=== PATIENT | female | born 1990 | race Hispanic/Latino ===

== ENCOUNTER 2021-05-04 23:54 | Inpatient (IN) | payer BC ==
[2021-05-05] MEDS ORDERED: LIDOCAINE (2%) 20 MG/1 ML VIAL 20 ML MDV INFILTRATI ONE (01:07)
[2021-05-05] MEDS ORDERED: OXYTOCIN 10 UNIT/1 ML INJ IM PRN (01:07)
[2021-05-05] MEDS ORDERED: ePHEDrine SULFATE 50 MG/1 ML INJ IV PRN ×2 (01:07→02:46)
[2021-05-05] MEDS ORDERED: NALOXONE 0.4 MG/1 ML INJ IV PRN (01:07)
[2021-05-05] MEDS ORDERED: CARBOPROST TROMETHAMINE 250 MCG/1 ML INJ IM PRN (01:07)
[2021-05-05] MEDS ORDERED: BUTORPHANOL 2 MG/1 ML INJ IV PRN (01:07)
[2021-05-05] MEDS ORDERED: MINERAL OIL 30 ML ORAL LIQD PO PRN (01:07)
[2021-05-05] MEDS ORDERED: miSOPROStol 200 MCG TAB PR PRN (01:07)
[2021-05-05] MEDS ORDERED: fentaNYL 100 MCG/2 ML INJ IV PRN (01:07)
[2021-05-05] MEDS ORDERED: METHYLERGONOVINE MALEATE 0.2 MG/ML VIAL IM PRN (01:07)
[2021-05-05] MEDS ORDERED: PROMETHAZINE 25 MG TAB PO PRN ×2 (01:07→11:49)
[2021-05-05] MEDS ORDERED: LOPERAMIDE 2 MG CAP PO PRN (01:07)
[2021-05-05] MEDS ORDERED: TERBUTALINE 1 MG/1 ML INJ SUB-Q PRN (01:07)
[2021-05-05] MEDS ORDERED: ONDANSETRON 4 MG/2 ML INJ IV PRN ×3 (01:07→11:49)
--- NOTE | 2021-05-05 01:25 | History and Physical Report ---
History of Present Illness Date of examination: 05/05/21 Date of admission: 05/05/2021 Chief complaint: My water broke and its green colored. History of present illness: Pt presents to triage with c/o SROM @ 1700 on 05/04/21 for green fluid. Also states contractions started after SROM. EDC Confirmation: 05/10/2021 Gestational Age: 39.2 weeks on admission Past History : 1 Risk Factors: Smoked Tobacco Use: Former smoker Cigarettes: Yes Year started: 2004 Years smoked: 2013 HIV high-risk behavior: no Alcohol use: yes Type: freq Exercise: no Seatbelt use: 100 % Past Medical History: Reviewed history from 12/12/2009 and no changes required: Negative Past Medical History Past Surgical History: Reviewed history from 12/12/2009 and no changes required: Negative Past Surgical History Past Medical History Abnormal PAP: negative TRACE Exposure: negative Infertility: negative Uterine Anomaly: negative Uterine Surgery (not C/S): negative Other Gynecologic Problems: negative Social Hx: Patient is 02/2020 Smoking History: Patient has never smoked. occ etoh/ no drugs Infection History HIV Risk Eval: no Partner hx. of genital herpes: no Rash, Viral, or Febrile illness since last LMP? no Genetic History Congenital Heart Defect: Mom: no Dad: no Jennifer Disease: Mom: no Dad: no Thalassemia Mom: no Dad: no Neural Tube Defect Mom: no Dad: no Down's Syndrome Mom: no Dad: no Mark-Sachs Mom: no Dad: no Sickle Cell Disease/Trait Mom: no Dad: no Hemophilia Mom: no Dad: no Muscular Dystrophy Mom: no Dad: no Cystic Fibrosis Mom: no Dad: no [place] Chorea Mom: no Dad: no Mental Retardation Mom: no Dad: no Fragile X Mom: no Dad: no Other Genetic/Chromosomal Disorder Mom: no Dad: no Child w/other defect Mom: no Dad: no Current Allergies (reviewed today): No known allergies Past History Past Medical History: no pertinent history Past Surgical History: no surgical history Family/Genetic History: none Social history: no significant social history, - Obstetrical History Expected Date of Delivery: 05/10/21 Actual Gestation: 39 Week(s) 2 Day(s) : 1 Para: 0 Hx # Term Pregnancies: 0 Number of Pregnancies: 0 Spontaneous Abortions: 0 Induced : 0 Number of Living Children: 0 Medications and Allergies Allergies Allergy/AdvReac Type Severity Reaction Status Date / Time amoxicillin [From Augmentin] AdvReac Vomiting Verified 05/05/21 01:00 clavulanic acid AdvReac Vomiting Verified 05/05/21 01:00 [From Augmentin] Review of Systems All systems: negative - Vital Signs Vital signs: Vital Signs Pulse Pulse Ox 95 H 98 05/05/21 00:46 05/05/21 00:46 Temp Pulse Resp BP Pulse Ox 98.3 F 100 H 18 139/86 98 05/05/21 00:48 05/05/21 01:16 05/05/21 00:48 05/05/21 00:48 05/05/21 01:16 - Physical Exam Breasts: Positive: deferred Cardiovascular: Regular rate Lungs: Positive: Normal air movement Abdomen: Positive: normal appearance, soft Genitourinary (Female): Positive: normal external genitalia, normal perenium Vulva: both: normal Uterus: Positive: normal size (For 39.2 wk gestation. ) Extremities: Positive: normal - Obstetrical FHR: category 1 Cervical Dilatation: 3 (Green fluid noted on exam glove.) Cervical Effacement Percentage: 70 station: -2 Uterine Contraction Pattern: Regular Uterine Tone Measurement Phase: Resting Uterine Contraction Intensity: Moderate Results Result Diagrams: 05/05/21 02:15 All other labs normal. GBS UNKNOWN HBsAg Screen Negative Negative *1 RPR Non Reactive Non Reactive *2 Rubella Antibodies, IgG 2.57 index Immune >0.99 *3 Non-immune <0.90 Equivocal 0.90 - 0.99 Immune >0.99 ABO Grouping O *4 Rh Factor Positive *5 Please note: Prior records for this patient's ABO / Rh type are not available for additional verification. Antibody Screen Negative Negative *6 ! Tests: (2) HB Solu + Rflx Frac (128422) Hemoglobin (Hgb) Solubility Negative Negative *31 Tests: (3) HIV Ag/Ab with Reflex ([id number]) HIV Screen 4th Generation wRfx Non Reactive Non Reactive *32 Tests: (4) HCV Ab w/Rflx to Verification ([id number]) ! HCV Ab <0.1 s/co ratio 0.0-0.9 *33 Tests: (5) Comment: ([id number]) ! Comment: SPRCS *34 Non reactive HCV antibody screen is consistent with no HCV infection, unless recent infection is suspected or other evidence exists to indicate HCV infection. Assessment and Plan A: 30 y.o. @ 39.2 wks, SROM mec stained fluid. Cervical exam /. - Patient Problems (1) Meconium in amniotic fluid affecting management of mother in third trimester Onset Date: ~05/05/21 Current Visit: Yes Status: Acute Plan to address problem: Continuos EFM. [facility] team for delivery. (2) with 39 completed weeks gestation Onset Date: ~05/05/21 Current Visit: Yes Status: Acute Plan to address problem: Admit to labor and delivery. Draw admission labs. Initiate IV. GBS Unknown: Clindamycin (pt allergic to amoxicillin) for prophylaxis. Monitor mother's temperature every 2 hrs. Anticipate .
[2021-05-05] MEDS ORDERED: ACETAMINOPHEN 500 MG TAB PO PRN ×2 (01:34→12:01)
[2021-05-05] MEDS ORDERED: OXYTOCIN DRIP 30 UNITS/500 ML BAG IV SCH ×2 (02:00)
[2021-05-05] MEDS: LACTATED RINGERS 1,000 ML IV SCH ×2 (02:00→03:17)
[2021-05-05 02:44] LABS: Hematocrit 32.3 % (30.3-42.9); Mean Corpuscular HGB Conc 34 % (30-34); Mean Corpuscular Volume 83 fl (79-97); Platelet Count 213 K/mm3 (140-440); Red Blood Count 3.88 M/mm3 (3.65-5.03); Red Cell Distribution Width 15.5 % (13.2-15.2)
[2021-05-05] MEDS ORDERED: diphenhydrAMINE 50 MG/ML VIAL IV PRN (02:46)
[2021-05-05] MEDS ORDERED: LACTATED RINGERS 250 ML IV SOLN IV ONE (02:46)
[2021-05-05] MEDS ORDERED: NalbUPHINE 10 MG/1 ML INJ IV PRN (02:46)
[2021-05-05] MEDS ORDERED: NALOXONE 2 MG/2 ML INJ IV PRN (02:46)
[2021-05-05] MEDS ORDERED: fentaNYL-BUPIV 2 MCG/ML-0.125% 200 MCG/100 ML BAG EPIDURAL SCH (03:00)
--- NOTE | 2021-05-05 03:12 | Anesthesia Consultation ---
Anesthesia Consult and Med Hx Date of service: 05/05/21 - Airway Anesthetic Teeth Evaluation: Good ROM Head & Neck: Adequate Mental/Hyoid Distance: Adequate Mallampati Class: Class II Intubation Access Assessment: Probably Good - Pulmonary Exam CTA: Yes - Cardiac Exam Cardiac Exam: RRR - Pre-Operative Health Status ASA Pre-Surgery Classification: ASA2 Proposed Anesthetic Plan: Epidural - Pulmonary Hx Smoking: No Hx Sleep Apnea: No - Cardiovascular System Hx Hypertension: No Hx Heart Attack/AMI: No Hx Angina: No - Gastrointestinal Hx Gastroesophageal Reflux Disease: No - Endocrine Hx Renal Disease: No Hx Liver Disease: No Hx Insulin Dependent Diabetes: No Hx Non-Insulin Dependent Diabetes: No - Other Systems Hx Alcohol Use: (not since )
--- NOTE | 2021-05-05 03:12 | Progress Note ---
Labor Epidural - Labor Epidural Start Time: 02:55 Stop Time: 03:08 Performed by:: AYLA STRINGER Procedure: Patient is requesting epidural for labor and pain. H&P, labs were reviewed. Patient IDed, H&P reviewed, all questions and concerns were answered, and consent was signed. Timeout was performed at bedside. Patient in sitting position. Sterile prep and drape was performed. 3ml of 1% lidocaine skin wheal at L[3]- L [4]. 18-gauge Tuohy epidural needle was advanced to loss of resistance with air technique 5cm. Negative CSF negative blood. Epidural catheter advanced to [10] centimeters. [negative] Aspiration [negative] test dose. Sterile dressing applied. Patient tolerated procedure.
--- NOTE | 2021-05-05 05:41 | Progress Note ---
Assessment and Plan A: Pt resting comfortably S/P epidural. No new complaints, SVE performed . Pt placed right lateral w/ peanut ball, Cat 1 tracing P: Begin Pit infusion 2mu/min, titrate per protocol. Will reassess PRN Subjective - Subjective Date of service: 05/05/21 (Pt comfortable with epidural) Principal diagnosis: IUP @ 39.2 wks, SROM light mec Patient reports: loss of fluid (Light green meconium noted. ), movement normal, no new complaints, no vaginal bleeding, no contractions Objective - Vital Signs Vital Signs: Vital Signs - 12hr 05/05/21 05/05/21 05/05/21 00:46 00:47 00:48 Temperature 98.3 F Pulse Rate 95 H 83 98 H Respiratory 18 Rate Blood Pressure 139/86 Blood Pressure 139/86 [Right] O2 Sat by Pulse 98 98 Oximetry O2 Sat by Pulse Oximetry [ Bilateral] 05/05/21 05/05/21 05/05/21 00:51 00:56 01:01 Temperature Pulse Rate 100 H 86 87 Respiratory Rate Blood Pressure Blood Pressure [Right] O2 Sat by Pulse 97 97 98 Oximetry O2 Sat by Pulse Oximetry [ Bilateral] 05/05/21 05/05/21 05/05/21 01:06 01:11 01:16 Temperature Pulse Rate 96 H 88 100 H Respiratory Rate Blood Pressure Blood Pressure [Right] O2 Sat by Pulse 97 97 98 Oximetry O2 Sat by Pulse Oximetry [ Bilateral] 05/05/21 05/05/21 05/05/21 01:37 01:54 01:59 Temperature Pulse Rate 84 89 Respiratory Rate Blood Pressure Blood Pressure [Right] O2 Sat by Pulse 97 97 Oximetry O2 Sat by Pulse 98 Oximetry [ Bilateral] 05/05/21 05/05/21 05/05/21 02:04 02:09 02:14 Temperature Pulse Rate 85 84 85 Respiratory Rate Blood Pressure Blood Pressure [Right] O2 Sat by Pulse 97 97 98 Oximetry O2 Sat by Pulse Oximetry [ Bilateral] 05/05/21 05/05/21 05/05/21 02:19 02:20 02:24 Temperature Pulse Rate 84 83 76 Respiratory Rate Blood Pressure 123/76 Blood Pressure [Right] O2 Sat by Pulse 98 98 Oximetry O2 Sat by Pulse Oximetry [ Bilateral] 05/05/21 05/05/21 05/05/21 02:29 02:34 02:39 Temperature Pulse Rate 76 93 H 104 H Respiratory Rate Blood Pressure Blood Pressure [Right] O2 Sat by Pulse 98 97 99 Oximetry O2 Sat by Pulse Oximetry [ Bilateral] 05/05/21 05/05/21 05/05/21 02:44 02:50 02:55 Temperature Pulse Rate 81 91 H 108 H Respiratory Rate Blood Pressure Blood Pressure [Right] O2 Sat by Pulse 98 98 98 Oximetry O2 Sat by Pulse Oximetry [ Bilateral] 05/05/21 05/05/21 05/05/21 03:00 03:05 03:08 Temperature Pulse Rate 94 H 99 H 104 H Respiratory Rate Blood Pressure 122/67 Blood Pressure [Right] O2 Sat by Pulse 98 96 Oximetry O2 Sat by Pulse Oximetry [ Bilateral] 05/05/21 05/05/21 05/05/21 03:10 03:13 03:15 Temperature Pulse Rate 87 87 88 Respiratory Rate Blood Pressure 105/58 Blood Pressure [Right] O2 Sat by Pulse 96 97 Oximetry O2 Sat by Pulse Oximetry [ Bilateral] 05/05/21 05/05/21 05/05/21 03:18 03:20 03:24 Temperature Pulse Rate 90 90 88 Respiratory Rate Blood Pressure 99/59 95/53 90/51 Blood Pressure [Right] O2 Sat by Pulse 97 Oximetry O2 Sat by Pulse Oximetry [ Bilateral] 05/05/21 05/05/21 05/05/21 03:25 03:30 03:35 Temperature Pulse Rate 83 95 H 84 Respiratory Rate Blood Pressure 96/57 Blood Pressure [Right] O2 Sat by Pulse 97 96 98 Oximetry O2 Sat by Pulse Oximetry [ Bilateral] 05/05/21 05/05/21 05/05/21 03:36 03:39 03:40 Temperature Pulse Rate 91 H 104 H 87 Respiratory Rate Blood Pressure 110/61 101/57 Blood Pressure [Right] O2 Sat by Pulse 97 Oximetry O2 Sat by Pulse Oximetry [ Bilateral] 05/05/21 05/05/21 05/05/21 03:45 03:50 03:55 Temperature Pulse Rate 98 H 90 102 H Respiratory Rate Blood Pressure 102/61 Blood Pressure [Right] O2 Sat by Pulse 96 96 97 Oximetry O2 Sat by Pulse Oximetry [ Bilateral] 05/05/21 05/05/21 05/05/21 04:00 04:05 04:07 Temperature Pulse Rate 103 H 94 H 85 Respiratory Rate Blood Pressure 102/56 Blood Pressure [Right] O2 Sat by Pulse 97 96 Oximetry O2 Sat by Pulse Oximetry [ Bilateral] 05/05/21 05/05/21 05/05/21 04:10 04:15 04:20 Temperature Pulse Rate 94 H 105 H 95 H Respiratory Rate Blood Pressure Blood Pressure [Right] O2 Sat by Pulse 97 97 97 Oximetry O2 Sat by Pulse Oximetry [ Bilateral] 05/05/21 05/05/21 05/05/21 04:21 04:25 04:30 Temperature Pulse Rate 85 92 H 99 H Respiratory Rate Blood Pressure 101/56 Blood Pressure [Right] O2 Sat by Pulse 97 96 Oximetry O2 Sat by Pulse Oximetry [ Bilateral] 05/05/21 05/05/21 05/05/21 04:35 04:37 04:40 Temperature Pulse Rate 96 H 86 93 H Respiratory Rate Blood Pressure 96/55 Blood Pressure [Right] O2 Sat by Pulse 96 95 Oximetry O2 Sat by Pulse Oximetry [ Bilateral] 05/05/21 05/05/21 05/05/21 04:45 04:49 04:50 Temperature Pulse Rate 94 H 86 98 H Respiratory Rate Blood Pressure Blood Pressure [Right] O2 Sat by Pulse 95 94 96 Oximetry O2 Sat by Pulse Oximetry [ Bilateral] 05/05/21 05/05/21 05/05/21 04:51 04:55 04:59 Temperature Pulse Rate 102 H 98 H 85 Respiratory Rate Blood Pressure 98/53 Blood Pressure [Right] O2 Sat by Pulse 95 94 Oximetry O2 Sat by Pulse Oximetry [ Bilateral] 05/05/21 05/05/21 05/05/21 05:00 05:04 05:05 Temperature Pulse Rate 88 85 85 Respiratory Rate Blood Pressure Blood Pressure [Right] O2 Sat by Pulse 95 94 94 Oximetry O2 Sat by Pulse Oximetry [ Bilateral] 05/05/21 05/05/21 05/05/21 05:06 05:10 05:15 Temperature Pulse Rate 94 H 89 86 Respiratory Rate Blood Pressure 96/55 Blood Pressure [Right] O2 Sat by Pulse 95 95 Oximetry O2 Sat by Pulse Oximetry [ Bilateral] 05/05/21 05/05/21 05/05/21 05:19 05:20 05:22 Temperature Pulse Rate 89 102 H 86 Respiratory Rate Blood Pressure 124/71 Blood Pressure [Right] O2 Sat by Pulse 94 97 Oximetry O2 Sat by Pulse Oximetry [ Bilateral] 05/05/21 05/05/21 05/05/21 05:25 05:30 05:35 Temperature Pulse Rate 104 H 91 H 85 Respiratory Rate Blood Pressure Blood Pressure [Right] O2 Sat by Pulse 97 96 97 Oximetry O2 Sat by Pulse Oximetry [ Bilateral] 05/05/21 05:37 Temperature Pulse Rate 84 Respiratory Rate Blood Pressure 116/69 Blood Pressure [Right] O2 Sat by Pulse Oximetry O2 Sat by Pulse Oximetry [ Bilateral] - Exam Breasts: deferred Cardiovascular: Regular rate Lungs: Normal air movement Abdomen: Present: normal appearance, soft Vulva: both: normal Uterus: Present: normal FHR: category 1 Uterine Contraction Monitor Mode: External Cervical Dilatation: 4 Cervical Effacement Percentage: 90 station: -1 Uterine Contraction Pattern: Irregular Uterine Tone Measurement Phase: Resting Uterine Contraction Intensity: Moderate - Labs Labs: Abnormal Labs 05/05/21 02:15 RDW 15.5 H Laboratory Results - last 24 hr 05/05/21 05/05/21 05/05/21 02:15 02:15 02:15 WBC 10.8 RBC 3.88 Hgb 11.0 Hct 32.3 MCV 83 MCH 28 MCHC 34 RDW 15.5 H Plt Count 213 Syphilis IgG Antibody Nonreactive Blood Type O POSITIVE Antibody Screen Negative
--- NOTE | 2021-05-05 09:26 | Progress Note ---
Assessment and Plan A: 30 y.o. @ 39.2 wks. SROM light mec. Feeling pressure. Cervical exam 100/0. P: Continue with labor and delivery management. Anticipate . - Patient Problems (1) Meconium in amniotic fluid affecting management of mother in third trimester Onset Date: ~05/05/21 Current Visit: Yes Status: Acute (2) with 39 completed weeks gestation Onset Date: ~05/05/21 Current Visit: Yes Status: Acute Subjective - Subjective Date of service: 05/05/21 (Pt was feeling pressure) Principal diagnosis: IUP @ 39.2 wks, SROM light mec Patient reports: loss of fluid (Light green meconium noted. ), movement n ormal, no new complaints, no vaginal bleeding, no contractions Objective - Vital Signs Vital Signs: Vital Signs - 12hr 05/05/21 05/05/21 05/05/21 00:46 00:47 00:48 Temperature 98.3 F Pulse Rate 95 H 83 98 H Respiratory 18 Rate Blood Pressure 139/86 Blood Pressure 139/86 [Right] O2 Sat by Pulse 98 98 Oximetry O2 Sat by Pulse Oximetry [ Bilateral] 05/05/21 05/05/21 05/05/21 00:51 00:56 01:01 Temperature Pulse Rate 100 H 86 87 Respiratory Rate Blood Pressure Blood Pressure [Right] O2 Sat by Pulse 97 97 98 Oximetry O2 Sat by Pulse Oximetry [ Bilateral] 05/05/21 05/05/21 05/05/21 01:06 01:11 01:16 Temperature Pulse Rate 96 H 88 100 H Respiratory Rate Blood Pressure Blood Pressure [Right] O2 Sat by Pulse 97 97 98 Oximetry O2 Sat by Pulse Oximetry [ Bilateral] 05/05/21 05/05/21 05/05/21 01:37 01:54 01:59 Temperature Pulse Rate 84 89 Respiratory Rate Blood Pressure Blood Pressure [Right] O2 Sat by Pulse 97 97 Oximetry O2 Sat by Pulse 98 Oximetry [ Bilateral] 05/05/21 05/05/21 05/05/21 02:04 02:09 02:14 Temperature Pulse Rate 85 84 85 Respiratory Rate Blood Pressure Blood Pressure [Right] O2 Sat by Pulse 97 97 98 Oximetry O2 Sat by Pulse Oximetry [ Bilateral] 05/05/21 05/05/21 05/05/21 02:19 02:20 02:24 Temperature Pulse Rate 84 83 76 Respiratory Rate Blood Pressure 123/76 Blood Pressure [Right] O2 Sat by Pulse 98 98 Oximetry O2 Sat by Pulse Oximetry [ Bilateral] 05/05/21 05/05/21 05/05/21 02:29 02:34 02:39 Temperature Pulse Rate 76 93 H 104 H Respiratory Rate Blood Pressure Blood Pressure [Right] O2 Sat by Pulse 98 97 99 Oximetry O2 Sat by Pulse Oximetry [ Bilateral] 05/05/21 05/05/21 05/05/21 02:44 02:50 02:55 Temperature Pulse Rate 81 91 H 108 H Respiratory Rate Blood Pressure Blood Pressure [Right] O2 Sat by Pulse 98 98 98 Oximetry O2 Sat by Pulse Oximetry [ Bilateral] 05/05/21 05/05/21 05/05/21 03:00 03:05 03:08 Temperature Pulse Rate 94 H 99 H 104 H Respiratory Rate Blood Pressure 122/67 Blood Pressure [Right] O2 Sat by Pulse 98 96 Oximetry O2 Sat by Pulse Oximetry [ Bilateral] 05/05/21 05/05/21 05/05/21 03:10 03:13 03:15 Temperature Pulse Rate 87 87 88 Respiratory Rate Blood Pressure 105/58 Blood Pressure [Right] O2 Sat by Pulse 96 97 Oximetry O2 Sat by Pulse Oximetry [ Bilateral] 05/05/21 05/05/21 05/05/21 03:18 03:20 03:24 Temperature Pulse Rate 90 90 88 Respiratory Rate Blood Pressure 99/59 95/53 90/51 Blood Pressure [Right] O2 Sat by Pulse 97 Oximetry O2 Sat by Pulse Oximetry [ Bilateral] 05/05/21 05/05/21 05/05/21 03:25 03:30 03:35 Temperature Pulse Rate 83 95 H 84 Respiratory Rate Blood Pressure 96/57 Blood Pressure [Right] O2 Sat by Pulse 97 96 98 Oximetry O2 Sat by Pulse Oximetry [ Bilateral] 05/05/21 05/05/21 05/05/21 03:36 03:39 03:40 Temperature Pulse Rate 91 H 104 H 87 Respiratory Rate Blood Pressure 110/61 101/57 Blood Pressure [Right] O2 Sat by Pulse 97 Oximetry O2 Sat by Pulse Oximetry [ Bilateral] 05/05/21 05/05/21 05/05/21 03:45 03:50 03:55 Temperature Pulse Rate 98 H 90 102 H Respiratory Rate Blood Pressure 102/61 Blood Pressure [Right] O2 Sat by Pulse 96 96 97 Oximetry O2 Sat by Pulse Oximetry [ Bilateral] 05/05/21 05/05/21 05/05/21 04:00 04:05 04:07 Temperature Pulse Rate 103 H 94 H 85 Respiratory Rate Blood Pressure 102/56 Blood Pressure [Right] O2 Sat by Pulse 97 96 Oximetry O2 Sat by Pulse Oximetry [ Bilateral] 05/05/21 05/05/21 05/05/21 04:10 04:15 04:20 Temperature Pulse Rate 94 H 105 H 95 H Respiratory Rate Blood Pressure Blood Pressure [Right] O2 Sat by Pulse 97 97 97 Oximetry O2 Sat by Pulse Oximetry [ Bilateral] 05/05/21 05/05/21 05/05/21 04:21 04:25 04:30 Temperature Pulse Rate 85 92 H 99 H Respiratory Rate Blood Pressure 101/56 Blood Pressure [Right] O2 Sat by Pulse 97 96 Oximetry O2 Sat by Pulse Oximetry [ Bilateral] 05/05/21 05/05/21 05/05/21 04:35 04:37 04:40 Temperature Pulse Rate 96 H 86 93 H Respiratory Rate Blood Pressure 96/55 Blood Pressure [Right] O2 Sat by Pulse 96 95 Oximetry O2 Sat by Pulse Oximetry [ Bilateral] 05/05/21 05/05/21 05/05/21 04:45 04:49 04:50 Temperature Pulse Rate 94 H 86 98 H Respiratory Rate Blood Pressure Blood Pressure [Right] O2 Sat by Pulse 95 94 96 Oximetry O2 Sat by Pulse Oximetry [ Bilateral] 05/05/21 05/05/21 05/05/21 04:51 04:55 04:59 Temperature Pulse Rate 102 H 98 H 85 Respiratory Rate Blood Pressure 98/53 Blood Pressure [Right] O2 Sat by Pulse 95 94 Oximetry O2 Sat by Pulse Oximetry [ Bilateral] 05/05/21 05/05/21 05/05/21 05:00 05:04 05:05 Temperature Pulse Rate 88 85 85 Respiratory Rate Blood Pressure Blood Pressure [Right] O2 Sat by Pulse 95 94 94 Oximetry O2 Sat by Pulse Oximetry [ Bilateral] 05/05/21 05/05/21 05/05/21 05:06 05:10 05:15 Temperature Pulse Rate 94 H 89 86 Respiratory Rate Blood Pressure 96/55 Blood Pressure [Right] O2 Sat by Pulse 95 95 Oximetry O2 Sat by Pulse Oximetry [ Bilateral] 05/05/21 05/05/21 05/05/21 05:19 05:20 05:22 Temperature Pulse Rate 89 102 H 86 Respiratory Rate Blood Pressure 124/71 Blood Pressure [Right] O2 Sat by Pulse 94 97 Oximetry O2 Sat by Pulse Oximetry [ Bilateral] 05/05/21 05/05/21 05/05/21 05:25 05:30 05:35 Temperature Pulse Rate 104 H 91 H 85 Respiratory Rate Blood Pressure Blood Pressure [Right] O2 Sat by Pulse 97 96 97 Oximetry O2 Sat by Pulse Oximetry [ Bilateral] 05/05/21 05/05/21 05/05/21 05:37 05:40 05:45 Temperature Pulse Rate 84 92 H 94 H Respiratory Rate Blood Pressure 116/69 Blood Pressure [Right] O2 Sat by Pulse 96 97 Oximetry O2 Sat by Pulse Oximetry [ Bilateral] 05/05/21 05/05/21 05/05/21 05:50 05:51 05:55 Temperature Pulse Rate 87 82 89 Respiratory Rate Blood Pressure 122/77 Blood Pressure [Right] O2 Sat by Pulse 96 95 Oximetry O2 Sat by Pulse Oximetry [ Bilateral] 05/05/21 05/05/21 05/05/21 05:56 06:00 06:05 Temperature Pulse Rate 82 85 85 Respiratory Rate Blood Pressure Blood Pressure [Right] O2 Sat by Pulse 94 97 97 Oximetry O2 Sat by Pulse Oximetry [ Bilateral] 05/05/21 05/05/21 05/05/21 06:06 06:10 06:15 Temperature Pulse Rate 87 91 H 88 Respiratory Rate Blood Pressure 109/69 Blood Pressure [Right] O2 Sat by Pulse 96 96 Oximetry O2 Sat by Pulse Oximetry [ Bilateral] 05/05/21 05/05/21 05/05/21 06:20 06:21 06:25 Temperature Pulse Rate 94 H 84 87 Respiratory Rate Blood Pressure 108/68 Blood Pressure [Right] O2 Sat by Pulse 95 95 Oximetry O2 Sat by Pulse Oximetry [ Bilateral] 05/05/21 05/05/21 05/05/21 06:30 06:35 06:36 Temperature Pulse Rate 92 H 92 H 86 Respiratory Rate Blood Pressure 107/67 Blood Pressure [Right] O2 Sat by Pulse 95 94 Oximetry O2 Sat by Pulse Oximetry [ Bilateral] 05/05/21 05/05/21 05/05/21 06:40 06:45 06:46 Temperature Pulse Rate 93 H 90 82 Respiratory Rate Blood Pressure Blood Pressure [Right] O2 Sat by Pulse 95 95 94 Oximetry O2 Sat by Pulse Oximetry [ Bilateral] 05/05/21 05/05/21 05/05/21 06:50 06:51 06:55 Temperature Pulse Rate 88 82 92 H Respiratory Rate Blood Pressure 110/67 Blood Pressure [Right] O2 Sat by Pulse 95 94 95 Oximetry O2 Sat by Pulse Oximetry [ Bilateral] 05/05/21 05/05/21 05/05/21 06:57 07:00 07:02 Temperature Pulse Rate 84 88 92 H Respiratory Rate Blood Pressure Blood Pressure [Right] O2 Sat by Pulse 94 94 94 Oximetry O2 Sat by Pulse Oximetry [ Bilateral] 05/05/21 05/05/21 05/05/21 07:05 07:06 07:10 Temperature Pulse Rate 88 85 91 H Respiratory Rate Blood Pressure 115/71 Blood Pressure [Right] O2 Sat by Pulse 94 95 Oximetry O2 Sat by Pulse Oximetry [ Bilateral] 05/05/21 05/05/21 05/05/21 07:14 07:15 07:16 Temperature 97.5 F L Pulse Rate 101 H 88 90 Respiratory 18 Rate Blood Pressure 108/65 Blood Pressure [Right] O2 Sat by Pulse 94 95 Oximetry O2 Sat by Pulse 98 Oximetry [ Bilateral] 05/05/21 05/05/21 05/05/21 07:20 07:23 07:25 Temperature Pulse Rate 86 102 H 84 Respiratory Rate Blood Pressure 92/55 Blood Pressure [Right] O2 Sat by Pulse 96 95 Oximetry O2 Sat by Pulse Oximetry [ Bilateral] 05/05/21 05/05/21 05/05/21 07:26 07:30 07:31 Temperature Pulse Rate 81 89 91 H Respiratory Rate Blood Pressure Blood Pressure [Right] O2 Sat by Pulse 94 95 94 Oximetry O2 Sat by Pulse Oximetry [ Bilateral] 05/05/21 05/05/21 05/05/21 07:35 07:37 07:40 Temperature Pulse Rate 97 H 86 89 Respiratory Rate Blood Pressure 116/68 Blood Pressure [Right] O2 Sat by Pulse 95 95 Oximetry O2 Sat by Pulse Oximetry [ Bilateral] 05/05/21 05/05/21 05/05/21 07:41 07:45 07:46 Temperature Pulse Rate 94 H 88 90 Respiratory Rate Blood Pressure Blood Pressure [Right] O2 Sat by Pulse 94 94 94 Oximetry O2 Sat by Pulse Oximetry [ Bilateral] 05/05/21 05/05/21 05/05/21 07:50 07:52 07:54 Temperature Pulse Rate 99 H 91 H 85 Respiratory Rate Blood Pressure 116/55 Blood Pressure [Right] O2 Sat by Pulse 94 94 Oximetry O2 Sat by Pulse Oximetry [ Bilateral] 05/05/21 05/05/21 05/05/21 07:55 07:59 08:00 Temperature Pulse Rate 90 93 H 95 H Respiratory Rate Blood Pressure Blood Pressure [Right] O2 Sat by Pulse 96 94 95 Oximetry O2 Sat by Pulse Oximetry [ Bilateral] 05/05/21 05/05/21 05/05/21 08:05 08:07 08:10 Temperature Pulse Rate 86 90 111 H Respiratory Rate Blood Pressure 115/59 Blood Pressure [Right] O2 Sat by Pulse 97 95 Oximetry O2 Sat by Pulse Oximetry [ Bilateral] 05/05/21 05/05/21 05/05/21 08:15 08:16 08:20 Temperature Pulse Rate 100 H 92 H 93 H Respiratory Rate Blood Pressure Blood Pressure [Right] O2 Sat by Pulse 95 94 97 Oximetry O2 Sat by Pulse Oximetry [ Bilateral] 05/05/21 05/05/21 05/05/21 08:21 08:25 08:26 Temperature Pulse Rate 96 H 97 H 89 Respiratory Rate Blood Pressure 103/55 Blood Pressure [Right] O2 Sat by Pulse 95 94 Oximetry O2 Sat by Pulse Oximetry [ Bilateral] 05/05/21 05/05/21 05/05/21 08:30 08:35 08:38 Temperature Pulse Rate 101 H 114 H 98 H Respiratory Rate Blood Pressure 87/51 Blood Pressure [Right] O2 Sat by Pulse 96 96 Oximetry O2 Sat by Pulse Oximetry [ Bilateral] 05/05/21 05/05/21 05/05/21 08:40 08:43 08:45 Temperature Pulse Rate 98 H 97 H 118 H Respiratory Rate Blood Pressure 86/52 Blood Pressure [Right] O2 Sat by Pulse 95 96 Oximetry O2 Sat by Pulse Oximetry [ Bilateral] 05/05/21 05/05/21 05/05/21 08:50 08:55 09:00 Temperature Pulse Rate 78 94 H 99 H Respiratory Rate Blood Pressure 132/80 Blood Pressure [Right] O2 Sat by Pulse 98 99 100 Oximetry O2 Sat by Pulse Oximetry [ Bilateral] 05/05/21 05/05/21 05/05/21 09:05 09:10 09:15 Temperature Pulse Rate 105 H 85 97 H Respiratory Rate Blood Pressure Blood Pressure [Right] O2 Sat by Pulse 99 99 98 Oximetry O2 Sat by Pulse Oximetry [ Bilateral] 05/05/21 09:20 Temperature Pulse Rate 95 H Respiratory Rate Blood Pressure 136/78 Blood Pressure [Right] O2 Sat by Pulse 99 Oximetry O2 Sat by Pulse Oximetry [ Bilateral] - Exam Breasts: deferred Cardiovascular: Regular rate Lungs: Normal air movement Uterus: Present: normal FHR: category 1 Uterine Contraction Monitor Mode: External Cervical Dilatation: 9 (Per RN taking care of patient.) Cervical Effacement Percentage: 100 station: 0 Uterine Contraction Pattern: Regular Uterine Tone Measurement Phase: Resting Uterine Contraction Intensity: Moderate - Labs Labs: Abnormal Labs 05/05/21 02:15 RDW 15.5 H Laboratory Results - last 24 hr 05/05/21 05/05/21 05/05/21 02:15 02:15 02:15 WBC 10.8 RBC 3.88 Hgb 11.0 Hct 32.3 MCV 83 MCH 28 MCHC 34 RDW 15.5 H Plt Count 213 Syphilis IgG Antibody Nonreactive Blood Type O POSITIVE Antibody Screen Negative
--- NOTE | 2021-05-05 11:47 | Procedure Note ---
OB Delivery Note - Delivery Date of Delivery: 05/05/21 Senior Director: SAVANAH DUKES ([facility]) Estimated blood loss: 100cc - Vaginal Delivery presentation: vertex Delivery position: OA ([place]) Intrapartum events: febrile- temp >100.3, meconium Delivery induction: none Delivery augmentation: pitocin Delivery monitor: external FHT, external uterine Route of delivery: Delivery placenta: spontaneous Delivery cord: 3 umbilical vessels Episiotomy: none Delivery laceration: none Anesthesia: epidural Delivery comments: Male infant birthed @ 1120 over intact perinuem and placed to maternal abd. Cord clamped and cut at >30 seconds and baby taken to warmer for stimulation and CPAP, APGARS 7/9 , 7#7. No lacerations, fundus firm and lochia light. All counts correct, mother and infant LDR stable. - Infant A at 1 minute: 7 at 5 minutes: 9 Infant Gender: Male ([place], 7#7)
[2021-05-05] MEDS ORDERED: PROMETHAZINE 25 MG RECT SUPP PR PRN (11:49)
[2021-05-05] MEDS ORDERED: diphenhydrAMINE 25 MG CAP PO PRN (11:49)
[2021-05-05] MEDS ORDERED: ACETAMINOPHEN 325 MG TAB PO PRN (11:49)
[2021-05-05] MEDS ORDERED: LANOLIN/ZINC/DIMETHICONE (LANSINOH) 7 GM TP PRN ×2 (11:49→12:00)
[2021-05-05] MEDS ORDERED: WITCH HAZEL/ GLYCERIN PAD TP PRN (11:49)
[2021-05-05] MEDS ORDERED: MAGNESIUM HYDROXIDE (MOM) ORAL LIQD UDC PO PRN (11:49)
[2021-05-05] MEDS ORDERED: oxyCODONE /ACETAMINOPHEN 5-325MG TAB PO PRN (12:00)
[2021-05-05] MEDS ORDERED: IBUPROFEN 600 MG TAB PO SCH (12:00)
[2021-05-05] MEDS ORDERED: BENZOCAINE/MENTHOL 20/0.5% TOP SPRAY 56 GM TP PRN (12:00)
[2021-05-05] MEDS: IBUPROFEN 800 MG TAB PO SCH ×2 (12:24→17:13)
[2021-05-05] MEDS ORDERED: IBUPROFEN 800 MG TAB PO SCH (13:00)
[2021-05-05] MEDS: DOCUSATE SODIUM 100 MG CAP PO SCH (21:47)
[2021-05-06 00:25] LABS: Hematocrit 32.5 % (30.3-42.9); Hemoglobin 10.7 gm/dl (10.1-14.3)
[2021-05-06] MEDS: IBUPROFEN 800 MG TAB PO SCH ×4 (06:11→23:40)
[2021-05-06] MEDS: DOCUSATE SODIUM 100 MG CAP PO SCH ×2 (09:57→22:00)
[2021-05-06] MEDS: PRENATAL VIT27-FE FUMARATE-FOLIC ACID VIT TAB PO SCH (09:57)
--- NOTE | 2021-05-06 09:57 | Post Anesthesia Evaluation ---
- Post Anesthesia Evaluation Patient Participated: Yes Airway Patent: Yes Stable Respiratory Function: Yes Nausea/Vomiting: No Temp > 96.8F: Yes Pain Manageable: Yes Adequeate Hydration: Yes Anesthesia Complications: No Block Receding Appropriately: Yes Patient on Ventilator: No
--- NOTE | 2021-05-06 11:23 | Discharge Summary ---
Providers - Providers Date of Admission: 05/05/21 01:07 Date of discharge: 05/07/21 (anticipated) Attending physician: ANGELA MCALLISTER Primary care physician: ANGELA MCALLISTER Hospitalization Reason for admission: rupture of membranes Procedure: other (vaginal delivery) Procedure details: see delivery note Laceration: other (see delivery note) Other procedures: none [place] baby: male Hospital course: Pt s/p normal spontaneous vaginal delivery. Pt had routine pp care. Pt d/c home when cleared for d/c home. Condition at discharge: Good Disposition: 01 HOME / SELF CARE / HOMELESS - Discharge Diagnoses (1) Spontaneous vaginal delivery Status: Acute Plan - Provider Discharge Summary Activity: routine, no sex for 6 weeks, no heavy lifting 4 weeks Diet: routine Instructions: routine Additional instructions: [] Smoking cessation referral if applicable(refer to patient education folder for contact #) [] Refer to [facility]'s [facility] Booklet Call your doctor immediately for: * Fever > 100.5 * Heavy vaginal bleeding ( >1 pad per hour) * Severe persistent headache * Shortness of breath * Reddened, hot, painful area to leg or breast * Drainage or odor from incision. * Keep incision clean and dry at all times and follow doctor's instructions regarding bathing/showering - Follow up plan Follow up: ANGELA MCALLISTER MD [Primary Care Provider] - 7 Days Forms: [facility] Discharge Summary
--- NOTE | 2021-05-06 11:23 | Progress Note ---
Assessment and Plan - Patient Problems (1) Spontaneous vaginal delivery Current Visit: Yes Status: Acute Plan to address problem: -routine pp care -d/c this pm if infant cleared for d/c home Subjective - Subjective Date of service: 05/06/21 (late entry. Pt seen at 0845) Principal diagnosis: PPD #1 s/p Interval history: Pt doing well w/o c/o this am. I d/w d/c home provided is d/c home. Pt agrees and desires d/c home today if baby cleared for d/c home. Patient reports: appetite normal, voiding normally, pain well controlled, no dizzy ambulation : doing well, nursing well, bottle feeding Objective - Vital Signs Latest vital signs: Vital Signs Temp Pulse Resp BP BP Pulse Ox Pulse Ox 05/06/21 08:05 98 05/06/21 07:58 97.9 F 72 18 100/61 97 05/06/21 06:11 12 05/06/21 01:04 98.1 F 84 20 121/76 98 05/05/21 21:20 98.8 F 93 H 20 109/58 96 05/05/21 20:15 98 05/05/21 16:23 98.0 F 91 H 18 97/62 97 05/05/21 13:15 95 05/05/21 12:54 100 H 18 107/76 96 05/05/21 12:35 90 101/64 99 05/05/21 12:30 96 H 98 05/05/21 12:27 89 120/59 05/05/21 12:25 100 H 98 05/05/21 12:24 18 05/05/21 12:20 98 H 99 05/05/21 12:15 95 H 99 05/05/21 12:12 99 H 101/55 05/05/21 12:10 88 98 05/05/21 12:05 100 H 98 05/05/21 12:00 107 H 97 05/05/21 11:57 117/57 05/05/21 11:55 104 H 97 05/05/21 11:50 96 H 98 05/05/21 11:49 98.5 F 05/05/21 11:45 101 H 97 05/05/21 11:42 90 117/57 05/05/21 11:40 95 H 95 05/05/21 11:37 92 H 94 05/05/21 11:35 96 H 99 05/05/21 11:32 18 05/05/21 11:30 90 99 05/05/21 11:27 105 H 110/59 05/05/21 11:25 110 H 99 Intake and Output 05/05/21 05/06/21 05/06/21 22:59 06:59 14:59 Intake Total 360 720 360 Output Total 800 800 Balance -440 -80 360 Intake: Oral 360 720 360 Output: Urine 800 800 Void 800 800 Other: Total, Intake Amount 240 240 120 Total, Output Amount 400 450 # Voids Indwelling Catheter 1 Void 1 - Exam Lungs: Present: Normal air movement Abdomen: Present: normal appearance, soft. Absent: distention, tenderness, guarding Uterus: Present: normal, firm, fundal height below umbilicus. Absent: tenderness Extremities: Present: normal. Absent: tenderness, edema Deep Tendon Reflex Grade: Normal +2
[2021-05-06] MEDS ORDERED: TETANUS,DIPH,PERTUSS(ACELL) VACCINE 0.5 ML SYRINGE IM ONE (11:50)
[2021-05-07] MEDS: IBUPROFEN 800 MG TAB PO SCH (06:06)
[2021-05-07] MEDS: PRENATAL VIT27-FE FUMARATE-FOLIC ACID VIT TAB PO SCH (10:14)
[2021-05-07] MEDS: DOCUSATE SODIUM 100 MG CAP PO SCH (10:14)
[2021-05-07 12:06] VITALS: BP 113/80
== END 2021-05-07 12:22 | disposition home or self-care (01) | DRG 807 ==
LOC: TRG 23:54 → APU 23:58 → LD 05-05 01:07 → TRG 05-05 01:07 → OB 05-05 12:59
PROVIDERS: ADMIT Obstetrics & Gynecology; ATTEND Obstetrics & Gynecology
PROC: 10E0XZZ Delivery of Products of Conception, External Approach (ICD-10-PCS; principal; 2021-05-05)
PROC: 3E0R3BZ Introduction of Anesthetic Agent into Spinal Canal, Percutaneous Approach (ICD-10-PCS; 2021-05-05)
PROC: 00HU33Z Insertion of Infusion Device into Spinal Canal, Percutaneous Approach (ICD-10-PCS; 2021-05-05)
DX: O77.0 Labor and delivery complicated by meconium in amniotic fluid (principal); Z37.0 Single live birth; Z3A.39 39 weeks gestation of pregnancy; Z88.8 Allergy status to other drugs, medicaments and biological substances; Z20.822 Contact with and (suspected) exposure to COVID-19; Z87.891 Personal history of nicotine dependence
CPT/HCPCS: 36415; 59025; 85014; 85018; 85027; 86592; 86850; 86900; 86901; 99211; G0378; G0463; J2405; J3010; J7120; U0003